=== PATIENT | female | born 1995 | race Two or more races ===

== ENCOUNTER 2023-11-28 06:21 | Inpatient (IN) ==
[2023-11-28] MEDS: ANCEF VIAL 1 GRAM IVP ONE (06:44)
[2023-11-28] MEDS: LR 1,000 ML IV 1,000 ML IV ONE (06:55)
[2023-11-28 07:11] LABS: BASOPHILS % (AUTO) 0.6 % (0.2-1.0); EOSINOPHILS % (AUTO) 0.7 % (0.9-2.9); HEMATOCRIT 35.4 % (36.0-47.0); HEMOGLOBIN 11.6 g/dL (12.0-16.0); LYMPHOCYTES # (AUTO) 2.3 X10^3/uL (1.3-2.9); MEAN CORPUSCULAR HEMOGLOBIN 27.8 pg (27.0-34.0); MEAN CORPUSCULAR HGB CONC 32.8 g/dL (33.0-35.0); MEAN CORPUSCULAR VOLUME 84.8 fL (80.0-100.0); MEAN PLATELET VOLUME 10.2 fL (7.4-11.0); MONOCYTES # (AUTO) 0.4 x10^3/uL (0.3-0.8); MONOCYTES % (AUTO) 6.4 % (0.0-13.0); NEUTROPHILS # (AUTO) 3.6 x10^3/uL (2.2-4.8); NEUTROPHILS % (AUTO) 56.3 % (42.0-75.0); PLATELET COUNT 155 X10^3/uL (150.0-450.0); RED BLOOD COUNT 4.18 X10^6/uL (3.5-5.4); RED CELL DISTRIBUTION WIDTH 14.6 % (11.6-16.5); WHITE BLOOD COUNT 6.3 X10^3/uL (3.6-10.0)
[2023-11-28 07:22] LABS: ALANINE AMINOTRANSFERASE 15 Units/L (12-78); ALBUMIN 2.7 g/dL (3.4-5.0); ALKALINE PHOSPHATASE 225 Units/L (46-116); ASPARTATE AMINO TRANSFERASE 21 Units/L (15-37); BLOOD UREA NITROGEN 7 mg/dL (7-18); CALCIUM 8.4 mg/dL (8.5-10.1); CARBON DIOXIDE 25.7 mmol/L (21-32); CHLORIDE 102 mmol/L (98-107); COR CA(FOR HYPOALB) 9.4 mg/dL (8.5-10.1); CREATININE 0.67 mg/dL (0.55-1.02); GLUCOSE 70 mg/dL (65-99); POTASSIUM 3.6 mmol/L (3.5-5.1); SODIUM 137 mmol/L (136-145); TOTAL PROTEIN 7.4 g/dL (6.4-8.2); eGFR NON BLACK RACES > 60 (>60)
[2023-11-28] MEDS: NOZIN NASAL SANITIZER TP ONE (07:22)
[2023-11-28 07:33] LABS: BILIRUBIN,URINE NEGATIVE (NEGATIVE); BLOOD/HEMOGLOBIN,URINE NEGATIVE (NEGATIVE); GLUCOSE, URINE NEGATIVE (NEGATIVE); KETONES,URINE NEGATIVE (NEGATIVE); LEUKOCYTE ESTERASE ,URINE 2+ (NEGATIVE); NITRITES,URINE NEGATIVE (NEGATIVE); PROTEIN,URINE 1+ (NEGATIVE); UROBILINOGEN,URINE NORMAL (NORMAL)
[2023-11-28] MEDS: ANCEF VIAL 1 GRAM ONE (07:34)
[2023-11-28] MEDS: NS 100 ML IV 100 ML ONE (07:34)
[2023-11-28] MEDS: DILAUDID INJ ONE (07:42)
[2023-11-28] MEDS: XYLOCAINE 2 % (PLAIN) ONE (07:42)
[2023-11-28] MEDS: MARCAINE SPINAL ONE (07:42)
[2023-11-28] MEDS: VERSED ONE (07:42)
[2023-11-28] MEDS: EPHEDRINE SULFATE INJ ONE (07:55)
[2023-11-28 07:56] LABS: APPEARANCE,URINE HAZY (CLEAR); COLOR,URINE YELLOW (YELLOW); RBC,URINE 0-2 /HPF (0-3)
[2023-11-28 07:57] LABS: BACTERIA,URINE TRACE /HPF (NEGATIVE); SQUAMOUS EPITHELIAL CELL,UR MANY /HPF (NEGATIVE)
[2023-11-28] MEDS: PITOCIN ONE (08:11)
[2023-11-28] MEDS ORDERED: BENADRYL INJ 50 MG VIAL IVP PRN ×3 (08:22→08:34)
[2023-11-28] MEDS ORDERED: REGLAN INJ 10 MG VIAL IVP PRN ×3 (08:22→08:34)
[2023-11-28] MEDS ORDERED: BARHEMSYS INJ IVP PRN (08:22)
[2023-11-28] MEDS ORDERED: DILAUDID INJ IVP PRN (08:22)
[2023-11-28] MEDS ORDERED: ZOFRAN INJ 4 MG VIAL IVP PRN ×3 (08:22→08:34)
[2023-11-28] MEDS ORDERED: NARCAN INJ IVP PRN ×2 (08:24→08:34)
[2023-11-28] MEDS ORDERED: PERCOCET TAB 5/325 MG PO PRN ×2 (08:24→08:34)
[2023-11-28] MEDS ORDERED: TORADOL 30 MG VIAL IVP PRN ×2 (08:24→08:34)
[2023-11-28] MEDS ORDERED: MYLICON TAB 80 MG CHEW PO PRN (08:34)
[2023-11-28] MEDS ORDERED: MORPHINE SULFATE INJ 2 MG INJ IVP PRN (08:34)
[2023-11-28] MEDS ORDERED: NS IRRIGATION* 500 ML IR ONE (10:26)
[2023-11-28] MEDS: OXYTOCIN 20 UNIT/1,000 ML-NS 20 UNIT/1,000 ML PLAST..BAG IV SCH (11:12)
[2023-11-28] MEDS: PRENATAL PLUS PO SCH (11:12)
[2023-11-28] MEDS: ZOFRAN INJ 4 MG VIAL IVP SCH (11:15)
[2023-11-28] MEDS: MOTRIN TAB 800 MG PO PRN (18:54)
[2023-11-29 05:03] LABS: HEMATOCRIT 27.7 % (36.0-47.0)
[2023-11-29 05:13] LABS: HEMOGLOBIN 9.2 g/dL (12.0-16.0)
[2023-11-29] MEDS: INJECTAFER 750 MG in NS 250 ML IV 250 ML IV NR (09:50)
[2023-11-30 09:09] VITALS: BP 104/67; PULSE 66; TEMP 97.7; O2SAT 99
[2023-11-30 10:10] VITALS: RESP 20
[2023-11-30] MEDS: PERCOCET TAB 5/325 MG PO PRN (10:10)
== END 2023-11-30 12:00 | disposition home or self-care (01) | DRG 788 ==
LOC: EDBD → LD 06:21 → MED/SURG 08:49
PROVIDERS: ADMIT Obstetrics & Gynecology Obstetrics; ATTEND Obstetrics & Gynecology Obstetrics
DX: O34.211 Maternal care for low transverse scar from previous cesarean delivery; G89.18 Other acute postprocedural pain; Z37.0 Single live birth; N85.8 Other specified noninflammatory disorders of uterus; Z3A.39 39 weeks gestation of pregnancy